=== PATIENT | female | born 1955 | race Asian ===

== ENCOUNTER 2016-11-21 17:43 | Emergency (ER) | payer OTHER ==
[2016-11-21 18:14] LABS: BILIRUBIN,URINE NEGATIVE (NEGATIVE)
[2016-11-21 18:17] LABS: UA CHARGE (STRIP ONLY) YES; UR CULTURE IF IND NOT INDICATED
--- NOTE | 2016-11-21 19:01 | ED Physician Documentation ---
PD HPI ABD PAIN - Stated complaint Stated Complaint: LLQ PX/CHILLS/FEVER - Chief complaint Chief Complaint: Abd Pain - History obtained from History obtained from: Patient - History of Present Illness Timing - onset: How many days ago (2-3) Timing - duration: Days (2-3) Timing - details: Gradual onset, Still present, Constant Quality: Aching, Pain Location: LLQ Radiation: No: Left flank Improved by: Position. No: Eating Worsened by: Position, Palpation. No: Eating, Breathing Associated symptoms: Fever, Nausea. No: Vomiting, Diarrhea, Melena Similar symptoms before: Has not had sx before Recently seen: Not recently seen Review of Systems Constitutional: reports: Fever, Chills Nose: denies: Rhinorrhea / runny nose, Congestion Throat: denies: Sore throat Cardiac: denies: Chest pain / pressure Respiratory: denies: Cough GI: reports: Abdominal Pain, Nausea. denies: Abdominal Swelling, Vomiting, Diarrhea : denies: Dysuria, Frequency Skin: denies: Rash, Lesions Musculoskeletal: denies: Back pain Neurologic: denies: Generalized weakness, Near syncope Endocrine: denies: Weight loss Immunocompromised: denies: Immunocompromised PD PAST MEDICAL HISTORY - Past Medical History Past Medical History: Yes Cardiovascular: Hypertension Endocrine/Autoimmune: Type 2 diabetes GI: GERD, Other (no prior diverticulitis) Musculoskeletal: Osteoarthritis - Past Surgical History Past Surgical History: Yes General: Cholecystectomy, Colonoscopy, EGD /ELECTRICAL DESIGN TECHNICIAN: Hysterectomy - Present Medications Home Medications: Ambulatory Orders Medication Instructions Recorded Confirmed Cephalexin [Keflex] 500 mg PO TID #21 capsule 11/21/16 Clopidogrel [Plavix] 75 mg PO DAILY 11/21/16 11/21/16 Fexofenadine HCl [Sheba Allergy] 60 mg PO 11/21/16 HYDROcod/ACETAM 5/325 [[place] 5/325] 1 tab PO Q6H PRN #15 tablet 11/21/16 Lisinopril [Zestril] 5 mg PO DAILY 11/21/16 11/21/16 Metronidazole [Flagyl] 500 mg PO BID #14 tablet 11/21/16 Multivitamin [Multiple Vitamins] 1 each PO 11/21/16 Pantoprazole [Protonix] 40 mg PO 11/21/16 Simvastatin [Zocor] 40 mg PO 11/21/16 11/21/16 metFORMIN [Glucophage] 500 mg PO BIDWM 11/21/16 11/21/16 - Allergies Allergies/Adverse Reactions: Allergies Allergy/AdvReac Type Severity Reaction Status Date / Time risedronate sodium Allergy Unknown Verified 11/21/16 17:58 [From Actonel] aspirin AdvReac Unknown Verified 11/21/16 17:58 loratadine [From Claritin] AdvReac Unknown Verified 11/21/16 17:58 - Social History Does the pt smoke?: No Smoking Status: Never smoker Does the pt drink ETOH?: No Does the pt have substance abuse?: No - Immunizations Immunizations are current?: Yes PD ED PE NORMAL - Vitals Vital signs reviewed: Yes - General General: Alert and oriented X 3, No acute distress, Well developed/nourished - HEENT HEENT: Moist mucous membranes, Pharynx benign - Neck Neck: Supple, no meningeal sign, No adenopathy - Cardiac Cardiac: RRR, No murmur - Respiratory Respiratory: Clear bilaterally - Abdomen Abdomen: Normal bowel sounds, Soft, Non distended, No organomegaly, Other ( tender LLQ with guarding, but no percussion nor rebound tenderness. ) - Female Female : Deferred - Rectal Rectal: Deferred - Derm Derm: Normal color, Warm and dry - Extremities Extremities: No deformity, No edema, No calf tenderness / cord - Neuro Neuro: Alert and oriented X 3, No motor deficit, Normal speech - Psych Psych: Normal mood, Normal affect Results - Vitals Vitals: Vital Signs - 24 hr 11/21/16 11/21/16 11/21/16 18:00 21:29 22:44 Temperature 38.1 C H 37.4 C Heart Rate 109 H 88 80 Respiratory 16 16 17 Rate Blood Pressure 146/77 H 127/75 O2 Saturation 100 96 98 Oxygen O2 Source Room air - Labs Labs: Laboratory Tests 11/21/16 11/21/16 11/21/16 18:05 18:35 18:35 WBC 11.1 H RBC 4.11 L Hgb 12.4 Hct 36.5 L MCV 88.9 MCH 30.3 MCHC 34.1 RDW 13.0 Plt Count 197 MPV 8.6 Neut # 8.7 H Lymph # 1.4 L [place] # 0.7 Eos # 0.1 Baso # 0.1 Absolute Nucleated RBC 0.00 Nucleated RBCs 0.0 Sodium 137 Potassium 3.6 Chloride 101 Carbon Dioxide 26 Anion Gap 10.0 BUN 13 Creatinine 0.7 Estimated GFR (MDRD) 85 L Glucose 136 H Calcium 9.7 Magnesium 1.7 Total Bilirubin 0.7 AST 33 ALT 35 Alkaline Phosphatase 59 Total Protein 7.7 Albumin 4.2 Globulin 3.5 Albumin/Globulin Ratio 1.2 Lipase 33 Urine Color YELLOW Urine Clarity CLEAR Urine pH 6.0 Ur Specific [place] <=1.005 Urine Protein NEGATIVE Urine Glucose (UA) NEGATIVE Urine Ketones NEGATIVE Urine Occult Blood TRACE-LYSE Urine Nitrite NEGATIVE Urine Bilirubin NEGATIVE Urine Urobilinogen 0.2 (NORMAL) Ur Leukocyte Esterase NEGATIVE Ur Microscopic Review NOT INDICATED Urine Culture Comments NOT INDICATED - Rads (name of study) abd CT Radiology: Prelim report reviewed (lower colon diverticulitis without abscess nor perforation) PD MEDICAL DECISION MAKING - ED course Complexity details: reviewed results, re-evaluated patient (she is feeling better with pain meds and antiemetics. She would prefer to go home. Uncomplicated diverticulitis and so home treatment is reasonable. ), considered differential (likely divertic vs. UTI/ stone/ pyelo. Will check labs, give IV fluids/pain meds/abx.), d/w patient Departure - Departure Disposition: 01 Home, Self Care Clinical Impression: Diverticulitis of gastrointestinal tract Abdominal pain Qualifiers: Abdominal location: left lower quadrant Qualified Code(s): R10.32 - Left lower quadrant pain Condition: Stable Record reviewed to determine appropriate education?: Yes Instructions: ED Diverticulitis Follow-Up: Yosvany Leon DO [Primary Care Provider] - Prescriptions: Metronidazole [Flagyl] 500 mg PO BID #14 tablet Cephalexin [Keflex] 500 mg PO TID #21 capsule HYDROcod/ACETAM 5/325 [[place] 5/325] 1 tab PO Q6H PRN #15 tablet PRN Reason: Pain Comments: Drink lots of fluids. Tylenol or hydrocodone if needed for pain. Cephalexin and metronidazole antibiotics as prescribed for a week. Follow-up with your primary care next week in about 5 or 6 days. Return sooner if worsening or if not improving over the next few days. Discharge Date/Time: 11/21/16 22:53
[2016-11-21] MEDS ORDERED: KETOROLAC 60 MG/2 ML VIAL IVP STA (19:11)
[2016-11-21] MEDS ORDERED: SODIUM CHLORIDE 0.9% 1,000 ML IV ONE (19:11)
[2016-11-21] MEDS ORDERED: HYDROmorphone 1 MG/ML SYRINGE IVP STA (19:11)
[2016-11-21] MEDS ORDERED: HYDROmorphone 1 MG/ML SYRINGE ONE (19:25)
[2016-11-21] MEDS ORDERED: KETOROLAC 15 MG/ML VIAL ONE (19:25)
[2016-11-21 19:26] LABS: ALBUMIN/GLOBULIN RATIO 1.2 (1.0-2.2); BILIRUBIN,TOTAL 0.7 mg/dL (0.2-1.0); CALCIUM 9.7 mg/dL (8.5-10.3); CREATININE 0.7 mg/dL (0.4-1.0); MAGNESIUM 1.7 mg/dL (1.7-2.8); POTASSIUM 3.6 mmol/L (3.5-5.0); TOTAL PROTEIN 7.7 g/dL (6.7-8.2)
[2016-11-21 19:27] LABS: BASOPHILS # (AUTO) 0.1 10^3/uL (0.0-0.1); BASOPHILS % (AUTO) 0.6 %; EOSINOPHILS # (AUTO) 0.1 10^3/uL (0.0-0.7); HCT - HEMATOCRIT 36.5 % (37.0-47.0); HGB - HEMOGLOBIN 12.4 g/dL (12.0-16.0); LYMPHOCYTES # (AUTO) 1.4 10^3/uL (1.5-3.5); LYMPHOCYTES % (AUTO) 12.7 %; MEAN CORPUSCULAR HEMOGLOBIN 30.3 pg (27.0-31.0); MEAN CORPUSCULAR HGB CONC 34.1 g/dL (32.0-36.0); MEAN CORPUSCULAR VOLUME 88.9 fL (81.0-99.0); MEAN PLATELET VOLUME 8.6 fL (7.9-10.8); MONOCYTES # (AUTO) 0.7 10^3/uL (0.0-1.0); MONOCYTES % (AUTO) 6.8 %; NEUTROPHILS # (AUTO) 8.7 10^3/uL (1.5-6.6); NEUTROPHILS % (AUTO) 78.9 %; RED BLOOD COUNT 4.11 10^6/uL (4.20-5.40); UNCORRECTED WHITE BLOOD COUNT 11.1 x10^3/uL; WHITE BLOOD COUNT 11.1 x10^3/uL (4.8-10.8)
[2016-11-21] MEDS ORDERED: cefTRIAXone 1 GM in SODIUM CHLORIDE 0.9% MINIBAG 100 ML IV STA (20:20)
[2016-11-21] MEDS ORDERED: cefTRIAXone 1 GM VIAL ONE (20:26)
[2016-11-21] MEDS ORDERED: IOPAMIDOL-300 100 ML VIAL IVP ONE (20:41)
[2016-11-21] MEDS ORDERED: metroNIDAZOLE 500 MG/100 ML 100 ML IV ONE (21:10)
--- NOTE | 2016-11-21 21:14 | CT Preliminary Report ---
Exam: CT Abdomen/Pelvis W/ IMPRESSION: Acute left lower quadrant diverticulitis. [facility] SITE ID: [id number]
--- NOTE | 2016-11-21 21:16 | CT Report ---
EXAM: CT ABDOMEN AND PELVIS EXAM DATE: 11/21/2016 08:53 PM. CLINICAL HISTORY: LLQ pain for 2-3 days. COMPARISONS: 02/11/2014 CT. TECHNIQUE: Routine helical CT imaging was performed through the abdomen and pelvis. IV contrast: 100 mL Isovue-300. Enteric contrast: No. Reconstructions: Coronal and sagittal. In accordance with CT protocol optimization, one or more of the following dose reduction techniques w ere utilized for this exam: automated exposure control, adjustment of mA and/or KV based on patient s ize, or use of iterative reconstructive technique. FINDINGS: Lung Bases: Unremarkable. Liver: Normal. No masses. Gallbladder/Bile Ducts: The gallbladder has been removed. No biliary dilatation. Spleen: Normal. Pancreas: Normal. Adrenal Glands: Normal. Kidneys: Normal. No masses or hydronephrosis. Peritoneal Cavity/Bowel: Acute diverticulitis involving the lower descending colon. No associated abs cess or pneumoperitoneum. The appendix is well visualized and normal. Pelvic Organs: Normal. The bladder and visualized pelvic organs are within normal limits. Vasculature: No aneurysms or other significant abnormality. Bones: No significant abnormality. Other: None. IMPRESSION: Acute left lower quadrant diverticulitis. [facility] Referring Provider Line: [phone] SITE ID: [id number]
[2016-11-21] MEDS ORDERED: metroNIDAZOLE 500 MG/100 ML 100 ML ONE (21:28)
[2016-11-21 21:37] VITALS: BP 127/75
[2016-11-21] MEDS ORDERED: HYDROcod/ACET 5/325 Prepack 6 PO ONE ×2 (22:38→22:43)
[2016-11-21] MEDS ORDERED: ONDANSETRON ODT 4 MG Prepack 2 TL PRN (22:38)
[2016-11-21] MEDS ORDERED: ONDANSETRON ODT 4 MG Prepack 2 TL ONE (22:43)
== END 2016-11-21 22:53 | disposition home or self-care (01) ==
LOC: ED 17:43
DX: K57.32 Diverticulitis of large intestine without perforation or abscess without bleeding (principal); I10 Essential (primary) hypertension; E11.9 Type 2 diabetes mellitus without complications; Z79.84 Long term (current) use of oral hypoglycemic drugs; K21.9 Gastro-esophageal reflux disease without esophagitis; M19.90 Unspecified osteoarthritis, unspecified site
CPT/HCPCS: 36415; 74177; 80053; 81003; 83690; 83735; 85025; 96365; 96375; 99284; Q9967; 81001; 87086

== ENCOUNTER 2018-11-17 11:03 | Emergency (ER) | payer OTHER ==
[2018-11-17 11:53] LABS: BASOPHILS # (AUTO) 0.1 10^3/uL (0.0-0.1); BASOPHILS % (AUTO) 1.3 %; EOSINOPHILS # (AUTO) 0.2 10^3/uL (0.0-0.7); HGB - HEMOGLOBIN 13.3 g/dL (12.0-16.0); LYMPHOCYTES # (AUTO) 1.8 10^3/uL (1.5-3.5); LYMPHOCYTES % (AUTO) 34.7 %; MEAN CORPUSCULAR HEMOGLOBIN 30.6 pg (27.0-31.0); MEAN CORPUSCULAR HGB CONC 33.8 g/dL (32.0-36.0); MEAN CORPUSCULAR VOLUME 90.6 fL (81.0-99.0); MEAN PLATELET VOLUME 9.9 fL (7.9-10.8); MONOCYTES # (AUTO) 0.3 10^3/uL (0.0-1.0); MONOCYTES % (AUTO) 6.1 %; NEUTROPHILS # (AUTO) 2.8 10^3/uL (1.5-6.6); NEUTROPHILS % (AUTO) 53.7 %; PLT - PLATELET COUNT 230 10^3/uL (130-450); RED BLOOD COUNT 4.35 10^6/uL (4.20-5.40); RED CELL DISTRIBUTION WIDTH 13.2 % (12.0-15.0); WHITE BLOOD COUNT 5.3 x10^3/uL (4.8-10.8)
[2018-11-17 12:09] LABS: ALBUMIN 4.5 g/dL (3.2-5.5); ALBUMIN/GLOBULIN RATIO 1.4 (1.0-2.2); BILIRUBIN,TOTAL 0.6 mg/dL (0.2-1.0); CALCIUM 9.9 mg/dL (8.5-10.3); CREATININE 0.7 mg/dL (0.4-1.0); TOTAL PROTEIN 7.8 g/dL (6.7-8.2)
--- NOTE | 2018-11-17 12:14 | XRAY Report ---
Reason: chest pain Procedure Date: 11/17/2018 Accession Number: [id number] / [id number] Procedure: XR - Chest 1 View X-Ray CPT Code: 16119 FULL RESULT: EXAM: CHEST RADIOGRAPHY EXAM DATE: 11/17/2018 11:53 AM. CLINICAL HISTORY: Chest pain. COMPARISON: CT ABDOMEN/PELVIS / 11/21/2016 8:42 PM Chest radiograph 02/09/2006 6:02 AM. TECHNIQUE: 1 view. FINDINGS: Lungs/Pleura: No focal opacities evident. No pleural effusion. No pneumothorax. Mediastinum: Within exam limitations, the cardiomediastinal contour is normal. There is mild atherosclerotic calcification of the aortic arch. Other: No acute osseous abnormality. There are surgical clips in the right upper quadrant of the abdomen. IMPRESSION: No acute cardiopulmonary abnormality. [facility]
--- NOTE | 2018-11-17 12:19 | ED Physician Documentation ---
PD HPI CHEST PAIN - Stated complaint Stated Complaint: NAUSEA/CHEST PRESSURE - Chief complaint Chief Complaint: Cardiac - History obtained from History obtained from: Patient - History of Present Illness Timing - onset: Today (This is a 62-year-old woman with history of diabetes, mild hypertension and hypercholesterolemia who has had vertigo for the last couple of days which is recurrent problem for her and did not bother her but woke up this morning with very mild constant nonradiating central chest pressure without shortness of breath. She had remotely negative stress test. But that was probably 10 or 15 years ago.) Review of Systems Constitutional: reports: Reviewed and negative Cardiac: reports: Chest pain / pressure. denies: Palpitations, Pedal edema, Calf pain Respiratory: denies: Dyspnea, Cough GI: reports: Nausea (mild, , But that is not uncommon for her vertigo.). 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 - Present Medications Home Medications: Ambulatory Orders Medication Instructions Recorded Confirmed Cephalexin [Keflex] 500 mg PO TID #21 capsule 11/21/16 Clopidogrel [Plavix] 75 mg PO DAILY 11/21/16 11/21/16 Fexofenadine HCl [Sheba Allergy] 60 mg PO 11/21/16 HYDROcod/ACETAM 5/325 [[place] 5/325] 1 tab PO Q6H PRN #15 tablet 11/21/16 Lisinopril [Zestril] 5 mg PO DAILY 11/21/16 11/21/16 Metronidazole [Flagyl] 500 mg PO BID #14 tablet 11/21/16 Multivitamin [Multiple Vitamins] 1 each PO 11/21/16 Pantoprazole [Protonix] 40 mg PO 11/21/16 Simvastatin [Zocor] 40 mg PO 11/21/16 11/21/16 metFORMIN [Glucophage] 500 mg PO BIDWM 11/21/16 11/21/16 - Allergies Allergies/Adverse Reactions: Allergies Allergy/AdvReac Type Severity Reaction Status Date / Time risedronate sodium Allergy Unknown Verified 11/17/18 11:18 [From Actonel] aspirin AdvReac Unknown Verified 11/17/18 11:18 loratadine [From Claritin] AdvReac Unknown Verified 11/17/18 11:18 - Social History Does the pt smoke?: No Smoking Status: Never smoker Does the pt drink ETOH?: No Does the pt have substance abuse?: No - Immunizations Immunizations are current?: Yes PD ED PE NORMAL - Vitals Vital signs reviewed: Yes - General General: Alert and oriented X 3, No acute distress - HEENT HEENT: PERRL, EOMI - Neck Neck: Supple, no meningeal sign, No bony TTP - Cardiac Cardiac: RRR, No murmur - Respiratory Respiratory: No respiratory distress, Clear bilaterally - Abdomen Abdomen: Non tender - Extremities Extremities: No edema, No calf tenderness / cord - Neuro Neuro: Alert and oriented X 3, Normal speech Results - Vitals Vitals: Vital Signs - 24 hr 11/17/18 11/17/18 11/17/18 11:06 11:35 12:18 Temperature 36.7 C Heart Rate 69 61 71 Respiratory 16 17 13 Rate Blood Pressure 139/77 H 138/82 H 111/78 O2 Saturation 99 99 99 11/17/18 11/17/18 11/17/18 12:30 13:00 13:30 Temperature Heart Rate 70 68 72 Respiratory 14 16 20 Rate Blood Pressure 110/80 113/67 101/65 O2 Saturation 100 97 98 11/17/18 14:00 Temperature Heart Rate 74 Respiratory 12 Rate Blood Pressure 117/70 O2 Saturation 98 Oxygen O2 Source Room air - EKG (time done) 1112 Rate: Rate (enter#) (65) Rhythm: NSR [place]: Normal Intervals: Normal RI QRS: Normal Ischemia: Normal ST segments Computer interpretation: Agree with computer - Labs Labs: Laboratory Tests 11/17/18 11/17/18 11/17/18 11:44 11:44 11:44 WBC 5.3 RBC 4.35 Hgb 13.3 Hct 39.4 MCV 90.6 MCH 30.6 MCHC 33.8 RDW 13.2 Plt Count 230 MPV 9.9 Neut # (Auto) 2.8 Lymph # (Auto) 1.8 [place] # (Auto) 0.3 Eos # (Auto) 0.2 Baso # (Auto) 0.1 Absolute Nucleated RBC 0.00 Nucleated RBC % 0.0 Sodium 139 Potassium 4.0 Chloride 101 Carbon Dioxide 26 Anion Gap 12.0 BUN 13 Creatinine 0.7 Estimated GFR (MDRD) 85 L Glucose 101 H Calcium 9.9 Total Bilirubin 0.6 AST 27 ALT 20 Alkaline Phosphatase 46 Troponin I High Sens 2.4 Total Protein 7.8 Albumin 4.5 Globulin 3.3 Albumin/Globulin Ratio 1.4 Lipase 39 11/17/18 14:06 WBC RBC Hgb Hct MCV MCH MCHC RDW Plt Count MPV Neut # (Auto) Lymph # (Auto) [place] # (Auto) Eos # (Auto) Baso # (Auto) Absolute Nucleated RBC Nucleated RBC % Sodium Potassium Chloride Carbon Dioxide Anion Gap BUN Creatinine Estimated GFR (MDRD) Glucose Calcium Total Bilirubin AST ALT Alkaline Phosphatase Troponin I High Sens < 2.3 L Total Protein Albumin Globulin Albumin/Globulin Ratio Lipase PD MEDICAL DECISION MAKING - ED course ED course: 62-year-old woman with atypical chest pain of about 6 hours with 2- troponins and nonischemic EKG in the department. Departure - Departure Disposition: 01 Home, Self Care Clinical Impression: Chest pain Qualifiers: Chest pain type: unspecified Qualified Code(s): R07.9 - Chest pain, unspecified Condition: Good Record reviewed to determine appropriate education?: Yes Instructions: ED Chest Pain Atypical Unkn Cause Comments: The lab work and EKG today suggest against any cardiac abnormality. That said since it has been a long time since her last stress test you should follow-up with your doctor tomorrow to schedule a new one. Return for new worsening symptoms. Continue current medications.
[2018-11-17 15:21] VITALS: BP 107/65
== END 2018-11-17 15:24 | disposition home or self-care (01) ==
LOC: ED 11:03
DX: R07.9 Chest pain, unspecified (principal); I10 Essential (primary) hypertension; E11.9 Type 2 diabetes mellitus without complications; Z79.84 Long term (current) use of oral hypoglycemic drugs
CPT/HCPCS: 36415; 71045; 80053; 83690; 84484; 85025; 93005; 99284

== ENCOUNTER 2019-01-20 14:24 | Outpatient (CLI) | payer OTHER ==
--- NOTE | 2019-01-20 18:29 | CARDIAC PROCEDURE NOTE ---
DATE OF SERVICE: 01/20/2019 Physician: Viviana Hunter MD, [facility] INDICATION: Chest pain. CARDIAC RISK FACTORS 1. Postmenopausal status. 2. Diabetes. 3. Hypertension. 4. Hyperlipidemia. DESCRIPTION OF PROCEDURE: After signing informed consent, he patient underwent a Rao-protocol treadmill stress test. No imaging was ordered with this test. RESTING HEART RATE: 83. PEAK HEART RATE: 154 (98% predicted maximum heart rate for age). RESTING BLOOD PRESSURE: 106/70. PEAK BLOOD PRESSURE: 161/61 and it went up further in early recovery to 178/65 before declining. Patient exercised for 6 minutes and 52 seconds on a Rao-protocol treadmill stress test. She achieved a peak heart rate of 154 (98% predicted maximum heart rate for age) and 8.4 METS. Patient had mild to moderate shortness of breath, no chest pain and described her perceived exertion at 13/20 on a Celi scale. Her oxygen saturation was 98% at rest and 93% at peak exercise, on room air. RESTING EKG: Normal sinus rhythm, left atrial enlargement, delta waves are present in leads I, II, V5, and V6, but no short MN interval is present. EKG AT PEAK: Diffuse upsloping ST segment depressions in leads II, III, aVF, and V3 through V6. SUMMARY 1. Abnormal resting EKG. 2. Nonspecific EKG changes occur with exercise at a good level of stress. 3. No imaging was ordered with this test. 4. This patient's cardiac risk based on EKG changes during exercise: Mild to moderate. 5. Consider repeat stress testing using imaging (stress echo or a treadmill exercise with nuclear imaging). cc: Ayesha Martel TD: 01/20/2019 17:03 MTDD
== END 2019-01-20 14:25 | disposition home or self-care (01) ==
LOC: DI 14:24
PROVIDERS: ATTEND Family Medicine
DX: R07.9 Chest pain, unspecified (principal); R94.31 Abnormal electrocardiogram [ECG] [EKG]; I10 Essential (primary) hypertension; E11.9 Type 2 diabetes mellitus without complications; E78.5 Hyperlipidemia, unspecified
CPT/HCPCS: 93017

== ENCOUNTER 2019-04-13 15:53 | Outpatient (CLI) | payer OTHER ==
--- NOTE | 2019-04-14 15:45 | Mammography Report ---
Reason: SCREENING MAMMO Procedure Date: 04/13/2019 Accession Number: [id number] / [id number] Procedure: [facility] - Screening Mammo w/Lamberto CPT Code: Final Report FULL RESULT: EXAM: Screening Mammo w/Lamberto DATE: 04/13/2019 4:27 PM CLINICAL HISTORY: The patient is an asymptomatic 63-year-old female. Family history (sister) with breast cancer. Prior benign left breast excisional biopsy. TECHNIQUE: (B) - Bilateral CC and MLO views were obtained. COMPARISON: 02/16/2015, 12/09/2013 11/22/2012 PARENCHYMAL PATTERN: (D) - The breasts demonstrate heterogeneously dense fibroglandular parenchyma bilaterally. FINDINGS: The pattern of asymmetry is stable given positional variation. Postbiopsy changes again noted in the left breast. There are no suspicious masses, calcifications, or areas of distortion. IMPRESSION: Benign findings. BI-RADS category 2. RECOMMENDATION: (ANNUAL) - Recommend routine annual screening mammography. BI-RADS CATEGORY: (2) - Benign Findings. STANDARD QUALIFYING STATEMENTS: A negative or benign imaging report should not preclude biopsy if clinically suspicious findings are present. Dense breasts may obscure an underlying neoplasm. This examination was reviewed with the aid of 3D breast imaging (tomosynthesis).
== END 2019-04-13 15:54 | disposition home or self-care (01) ==
LOC: DI 15:53
DX: Z12.31 Encounter for screening mammogram for malignant neoplasm of breast (principal); Z80.3 Family history of malignant neoplasm of breast
CPT/HCPCS: 77063; 77067

== ENCOUNTER 2020-07-26 11:16 | Outpatient (CLI) | payer OTHER ==
--- NOTE | 2020-07-27 09:38 | Mammography Report ---
BILATERAL DIGITAL SCREENING MAMMOGRAM 3D/2D: 07/26/2020 CLINICAL: Routine screening. Comparison is made to exams dated: 04/13/2019 mammogram - [facility], 02/16/2018 [facility] mogram, 02/12/2017 mammogram - [facility], 02/16/2015 mammogram, 12/28/2013 mammogram, and 12/09 mammogram - [facility]. The tissue of both breasts is predominantly fatty. There are benign calcifications in both breasts. No significant masses, calcifications, or other findings are seen in either breast. There has been no significant interval change. IMPRESSION: BENIGN There is no mammographic evidence of malignancy. A 1 year screening mammogram is recommended. This exam was interpreted at Station ID: [id number]. NOTE: For mammograms, a report in lay terms will be sent to the patient. Approximately 15% of breast malignancies will not be visualized mammographically. In the management of a palpable breast mass, a negative mammogram must not discourage biopsy of a clinically suspicious lesion. Electronically Signed By: Ariel Fan acr/penrad:07/26/2020 12:27:39 ACR BI-RADS Category 2: Benign Finding(s) 3342F PARENCHYMAL PATTERN: (F) - The breast(s) demonstrate(s) diffuse fatty replacement. BI-RADS CATEGORY: (2) - 2 RECOMMENDATION: (ANNUAL) - Recommend routine annual screening mammography. [id number] 1 year screening LATERALITY: (B)
== END 2020-07-26 11:17 | disposition home or self-care (01) ==
LOC: DI.N 11:16
DX: Z12.31 Encounter for screening mammogram for malignant neoplasm of breast (principal)

== ENCOUNTER 2020-09-10 08:00 | Outpatient (CLI) | payer OTHER ==
--- NOTE | 2020-09-10 13:11 | XRAY Report ---
PROCEDURE: Foot 3 View RT INDICATIONS: FOOT PAIN, RIGHT TECHNIQUE: 3 views of the foot were acquired. COMPARISON: None FINDINGS: Bones: No fractures or dislocations. No suspicious bony lesions. Soft tissues: No tibiotalar joint effusion. Achilles tendon appears normal. IMPRESSION: No acute fracture. No osseous lesion. If symptoms and/or clinical suspicion for pathology continue, f urther assessment with repeat plain films, or advanced imaging (e.g., CT, MRI, or bone scan) is recom mended for further assessment. Reviewed by: Bereket Madden MD on 09/10/2020 1:10 PM PDT Approved by: Bereket Madden MD on 09/10/2020 1:10 PM PDT Station ID: [id number]
[2020-09-10 18:15] LABS: CALCIUM 9.9 mg/dL (8.5-10.3); CREATININE 0.6 mg/dL (0.4-1.0); POTASSIUM 4.1 mmol/L (3.5-5.0); URIC ACID 6.4 mg/dL (2.6-7.2)
== END 2020-09-10 23:59 | disposition home or self-care (01) ==
LOC: DI.N 08:00
PROVIDERS: ATTEND Family Medicine
DX: M79.671 Pain in right foot (principal)
CPT/HCPCS: 36415; 80048; 84550

== ENCOUNTER 2021-06-18 15:22 | Outpatient (CLI) | payer MEDICARE, OTHER ==
--- NOTE | 2021-06-18 16:23 | DEXA Report ---
PROCEDURE: Dexa Spine and/or Hip INDICATIONS: POST MENOPAUSAL Z78.0 TECHNIQUE: Dual energy x-ray absorptiometry (DXA) was performed on a [employer] System. Regions measur ed are the AP Spine, femoral neck, and if needed forearm. COMPARISON: None. FINDINGS: Lumbar Spine: Bone Mineral Density 0.925 g/cm/cm,T score -2.1 Left Hip: Bone Mineral Density 0.920 g/cm/cm,T score -0.7 Left Femoral Neck: Bone Mineral Density 0.862 g/cm/cm, T score -1.3 (T score greater or equal to -1.0: NORMAL) (T score from -1.1 to -2.4: OSTEOPENIA) (T score less than or equal to -2.5 to: OSTEOPOROSIS) Impression: Osteopenia of the lumbar spine and the left femoral neck. Patients with diagnosis of osteoporosis or osteopenia should have regular bone mineral density assess ment. For those eligible for Medicare, routine testing is allowed once every 2 years. Testing frequ ency can be increased for patients who have rapidly progressing disease or for those who are receivin g medical therapy to restore bone mass. Reviewed by: Kaley Montoya MD on 06/18/2021 4:22 PM PDT Approved by: Kaley Montoya MD on 06/18/2021 4:22 PM PDT Station ID: [id number]
== END 2021-06-18 15:23 | disposition home or self-care (01) ==
LOC: DI 15:22
PROVIDERS: ATTEND Internal Medicine
DX: M85.89 Other specified disorders of bone density and structure, multiple sites (principal); Z78.0 Asymptomatic menopausal state

== ENCOUNTER 2021-07-25 08:00 | Outpatient (CLI) | payer MEDICARE, OTHER ==
[2021-07-25 12:24] LABS: HCT - HEMATOCRIT 38.5 % (37.0-47.0); MEAN CORPUSCULAR HEMOGLOBIN 30.4 pg (27.0-31.0); MEAN CORPUSCULAR HGB CONC 33.8 g/dL (32.0-36.0); MEAN CORPUSCULAR VOLUME 90.2 fL (81.0-99.0); MEAN PLATELET VOLUME 10.1 fL (7.9-10.8); RED BLOOD COUNT 4.27 10^6/uL (4.20-5.40); RED CELL DISTRIBUTION WIDTH 12.7 % (12.0-15.0)
== END 2021-07-25 23:59 | disposition home or self-care (01) ==
LOC: LAB.N 08:00
PROVIDERS: ATTEND Physician Assistant Medical
DX: M10.9 Gout, unspecified (principal)
CPT/HCPCS: 36415; 84550; 85027

== ENCOUNTER 2021-08-05 14:41 | Outpatient (CLI) | payer MEDICARE, OTHER ==
--- NOTE | 2021-08-09 16:24 | Mammography Report ---
BILATERAL DIGITAL SCREENING MAMMOGRAM 3D/2D: 08/05/2021 CLINICAL: Family history of breast cancer. Routine screening. Comparison is made to exams dated: 07/26/2020 mammogram, 04/13/2019 mammogram - [facility], 02/16/2018 mammogram, 02/12/2017 mammogram - [facility], 02/16/2015 mammogram, and 12/06 mammogram - [facility]. The tissue of both breasts is predominantly fatty. There are benign calcifications in both breasts. No significant masses, calcifications, or other findings are seen in either breast. There has been no significant interval change. IMPRESSION: BENIGN There is no mammographic evidence of malignancy. A 1 year screening mammogram is recommended. This exam was interpreted at Station ID: [id number]. NOTE: For mammograms, a report in lay terms will be sent to the patient. Approximately 15% of breast malignancies will not be visualized mammographically. In the management of a palpable breast mass, a negative mammogram must not discourage biopsy of a clinically suspicious lesion. Electronically Signed By: Piotr Gutierrez M.D., jr/augie:08/05/2021 15:14:06 ACR BI-RADS Category 2: Benign Finding(s) 3342F PARENCHYMAL PATTERN: (F) - The breast(s) demonstrate(s) diffuse fatty replacement. BI-RADS CATEGORY: (2) - 2 RECOMMENDATION: (ANNUAL) - Recommend routine annual screening mammography. [id number] 1 year screening LATERALITY: (B)
== END 2021-08-05 14:42 | disposition home or self-care (01) ==
LOC: DI.N 14:41
PROVIDERS: ATTEND Internal Medicine
DX: Z12.31 Encounter for screening mammogram for malignant neoplasm of breast (principal); Z80.3 Family history of malignant neoplasm of breast

== ENCOUNTER 2022-09-08 13:31 | Outpatient (CLI) | payer MEDICARE, OTHER ==
--- NOTE | 2022-09-09 12:54 | Mammography Report ---
BILATERAL DIGITAL SCREENING MAMMOGRAM 3D/2D: 09/08/2022 CLINICAL: Family history of breast cancer. Routine screening. Comparison is made to exams dated: 08/05/2021 mammogram, 07/26/2020 mammogram, 04/13/2019 mammogram - [facility], 02/16/2018 mammogram, 02/12/2017 mammogram - [facility], and 02/16 mammogram - [facility]. There are scattered areas of fibroglandular density in both breasts (category b / 25%-50% glandular t issue). There are benign calcifications in both breasts. No significant masses, calcifications, or other findings are seen in either breast. There has been no significant interval change. IMPRESSION: BENIGN There is no mammographic evidence of malignancy. A 1 year screening mammogram is recommended. Based on the Tyrer Cuzick model (a risk assessment model) the patients lifetime risk is 9.8% and her 10 year risk is 5.0%. According to the ACR, ACS, and NCCN guidelines, an annual breast MRI exam antionette g with mammogram is recommended if the patients lifetime risk is 20% or greater. This exam was interpreted at Station ID: [id number]. NOTE: For mammograms, a report in lay terms will be sent to the patient. Approximately 15% of breast malignancies will not be visualized mammographically. In the management of a palpable breast mass, a negative mammogram must not discourage biopsy of a clinically suspicious lesion. Electronically Signed By: Darrick jain/augie:09/08/2022 18:16:12 letter sent: No_Letter ACR BI-RADS Category 2: Benign Finding(s) 3342F PARENCHYMAL PATTERN: (A) - The breast(s) demonstrate(s) scattered fibroglandular densities. BI-RADS CATEGORY: (2) - 2 Mammogram [id number] 1 year screening LATERALITY: (B)
== END 2022-09-08 13:32 | disposition home or self-care (01) ==
LOC: DI.N 13:31
DX: Z12.31 Encounter for screening mammogram for malignant neoplasm of breast (principal); Z80.3 Family history of malignant neoplasm of breast

== ENCOUNTER 2023-06-22 08:13 | Outpatient (CLI) | payer MEDICARE, OTHER ==
--- NOTE | 2023-06-22 16:53 | Ultrasound Report ---
PROCEDURE: Abdomen Complete INDICATIONS: ABD PAIN TECHNIQUE: Real-time scanning was performed of the abdominal and retroperitoneal organs, with image documentatio n. COMPARISON: None. FINDINGS: Liver: Liver is normal in size. Diffusely increased liver parenchymal echotexture is seen. No discre te hepatic lesion. Gallbladder: Absent. Biliary ducts: Intrahepatic bile ducts are non-dilated. Extrahepatic bile duct caliber measures 5.9 mm. Normal is 6-7 mm or less in diameter, or 10 mm or less post-cholecystectomy. Pancreas: Visualized portions of the pancreas are sonographically normal. Spleen: Spleen is normal in size and homogeneous in echotexture. Kidneys: Kidneys are normal in size and echotexture. Right kidney measures 10.0 cm long; left kidne y measures 10.3 cm long. No hydronephrosis or nephrolithiasis. No solid masses. No complex renal cy stic lesions which require follow-up. Aorta: Visualized aorta is normal in caliber at less than 3 cm. Calcified plaques are noted through out abdominal aorta. Iliacs: Proximal common iliac arteries are normal in caliber at less than 2.5 cm. IVC: Intrahepatic inferior vena cava is patent. Miscellaneous: No free abdominal fluid. IMPRESSION: 1. Hepatic steatosis, no discrete hepatic lesion. 2. Prior cholecystectomy. No biliary ductal dilatation. 3. Mild to moderate atherosclerotic disease throughout abdominal aorta. 4. Rest of the exam is unremarkable. Reviewed by: Jesus Cote MD on 06/22/2023 4:52 PM PDT Approved by: Jesus Cote MD on 06/22/2023 4:52 PM PDT Station ID: [id number]
== END 2023-06-22 08:14 | disposition home or self-care (01) ==
LOC: DI 08:13
PROVIDERS: ATTEND Family Medicine
DX: K76.0 Fatty (change of) liver, not elsewhere classified (principal); Z90.49 Acquired absence of other specified parts of digestive tract; I70.0 Atherosclerosis of aorta

== ENCOUNTER 2023-06-29 09:06 | Outpatient (CLI) | payer MEDICARE, OTHER ==
[2023-06-29 11:58] LABS: HCT - HEMATOCRIT 41.3 % (37.0-47.0); HGB - HEMOGLOBIN 13.6 g/dL (12.0-16.0); MEAN CORPUSCULAR HEMOGLOBIN 30.4 pg (27.0-31.0); MEAN CORPUSCULAR HGB CONC 32.9 g/dL (32.0-36.0); MEAN CORPUSCULAR VOLUME 92.4 fL (81.0-99.0); MEAN PLATELET VOLUME 10.4 fL (7.9-10.8); RED BLOOD COUNT 4.47 10^6/uL (4.20-5.40); RED CELL DISTRIBUTION WIDTH 12.9 % (12.0-15.0); WHITE BLOOD COUNT 3.5 x10^3/uL (4.8-10.8)
[2023-06-29 12:34] LABS: ALBUMIN 4.5 g/dL (3.2-5.5); ALBUMIN/GLOBULIN RATIO 1.6 (1.0-2.2); ALKALINE PHOSPHATASE 50 IU/L (42-121); ALT ALANINE AMINOTRANSFERASE 38 IU/L (10-60); AST ASPARTATE AMINOTRANSFERASE 29 IU/L (10-42); BILIRUBIN,TOTAL 0.5 mg/dL (0.2-1.0); BUN - BLOOD UREA NITROGEN 17 mg/dL (6-20); CALCIUM 10.1 mg/dL (8.5-10.3); CARBON DIOXIDE - CO2 28 mmol/L (21-32); CHLORIDE 106 mmol/L (101-111); CHOL/HDL RATIO 3.3 (<4.4); CHOLESTEROL 199 mg/dL; CREATININE 0.6 mg/dL (0.6-1.3); GFR - MDRD 100 (>89); GLUCOSE 112 mg/dL (74-104); HDL CHOLESTEROL 61 mg/dL; LDL CHOLESTEROL,CALCULATED 110 mg/dL; LDL/HDL RATIO 1.8 (<4.4); LIPASE 26 U/L (11-82); POTASSIUM 4.3 mmol/L (3.5-4.5); SODIUM 139 mmol/L (135-145); TOTAL PROTEIN 7.4 g/dL (6.4-8.9); TRIGLYCERIDES 141 mg/dL (48-352); VLDL CHOLESTEROL 28 mg/dL
[2023-06-29 12:37] LABS: ESTIMATED AVERAGE GLUCOSE 128 mg/dL (70-100); HEMOGLOBIN A1c% 6.1 % (4.27-6.07)
[2023-06-29 12:47] LABS: THYROID STIMULATING HORMONE 1.66 uIU/mL (0.34-5.60)
[2023-06-29 12:56] LABS: CREATININE,URINE 58.8 mg/dL
[2023-06-29 12:57] LABS: MICROALBUMIN,URINE < 0.7 mg/dL
== END 2023-06-29 09:07 | disposition home or self-care (01) ==
LOC: LAB.N 09:06
PROVIDERS: ATTEND Family Medicine
DX: E11.9 Type 2 diabetes mellitus without complications (principal); E78.5 Hyperlipidemia, unspecified; R10.12 Left upper quadrant pain
CPT/HCPCS: 36415; 80053; 80061; 82043; 82570; 83036; 83690; 83721; 84443; 85027

== ENCOUNTER 2023-08-03 14:12 | Outpatient (CLI) | payer MEDICARE, OTHER ==
--- NOTE | 2023-08-03 15:26 | DEXA Report ---
PROCEDURE: Dexa Spine and/or Hip INDICATIONS: POST MENOPAUSAL TECHNIQUE: Dual energy x-ray absorptiometry (DXA) was performed on a [employer] System. Regions measur ed are the AP Spine, femoral neck, and if needed forearm. COMPARISON: DEXA 06/18/2021 FINDINGS: Lumbar Spine: Bone Mineral Density: 0.955 g/cm/cm,T score: -1.9. Since the most recent prior study, there has been a statistically significant increase in bone mineral density by 3.2 percent. Left Femoral Neck: Bone Mineral Density: 0.825 g/cm/cm, T score: -1.5. Left Hip: Bone Mineral Density: 0.902 g/cm/cm,T score: -0.8. There has been no statistically significant change in bone mineral density since the prior study. (T score greater or equal to -1.0: NORMAL) (T score from -1.1 to -2.4: OSTEOPENIA) (T score less than or equal to -2.5 to: OSTEOPOROSIS) Impression: By WHO criteria, this patient has low bone density (osteopenia). Interval statistical increase in bone mineral density of the lumbar spine. No statistical interval ch che in bone mineral density of the hip. Patients with diagnosis of osteoporosis or osteopenia should have regular bone mineral density assess ment. For those eligible for Medicare, routine testing is allowed once every 2 years. Testing frequ ency can be increased for patients who have rapidly progressing disease or for those who are receivin g medical therapy to restore bone mass. Reviewed by: Alvarez Nunez MD on 08/03/2023 3:24 PM PDT Approved by: Alvarez Nunez MD on 08/03/2023 3:24 PM PDT Station ID: [id number]
== END 2023-08-03 14:13 | disposition home or self-care (01) ==
LOC: DI 14:12
PROVIDERS: ATTEND Family Medicine
DX: M85.89 Other specified disorders of bone density and structure, multiple sites (principal); Z78.0 Asymptomatic menopausal state

== ENCOUNTER 2023-08-07 12:00 | Outpatient (CLI) | payer MEDICARE, OTHER ==
[2023-08-07 17:52] LABS: BASOPHILS # (AUTO) 0.1 10^3/uL (0.0-0.1); BASOPHILS % (AUTO) 1.4 %; EOSINOPHILS # (AUTO) 0.2 10^3/uL (0.0-0.7); EOSINOPHILS % (AUTO) 4.3 %; HCT - HEMATOCRIT 39.6 % (37.0-47.0); HGB - HEMOGLOBIN 12.8 g/dL (12.0-16.0); LYMPHOCYTES # (AUTO) 1.8 10^3/uL (1.5-3.5); LYMPHOCYTES % (AUTO) 40.3 %; MEAN CORPUSCULAR HEMOGLOBIN 29.7 pg (27.0-31.0); MEAN CORPUSCULAR HGB CONC 32.3 g/dL (32.0-36.0); MEAN CORPUSCULAR VOLUME 91.9 fL (81.0-99.0); MEAN PLATELET VOLUME 10.9 fL (7.9-10.8); MONOCYTES # (AUTO) 0.3 10^3/uL (0.0-1.0); MONOCYTES % (AUTO) 6.8 %; NEUTROPHILS # (AUTO) 2.1 10^3/uL (1.5-6.6); PLT - PLATELET COUNT 228 10^3/uL (130-450); RED BLOOD COUNT 4.31 10^6/uL (4.20-5.40); WHITE BLOOD COUNT 4.4 x10^3/uL (4.8-10.8)
== END 2023-08-07 12:01 | disposition home or self-care (01) ==
LOC: LAB.N 12:00
PROVIDERS: ATTEND Family Medicine
DX: D72.819 Decreased white blood cell count, unspecified (principal)
CPT/HCPCS: 36415; 85025

== ENCOUNTER 2023-08-26 07:16 | Day surgery (SDC) | payer MEDICARE, OTHER ==
[~2023-08-26 07:16] MED LIST: LIDOCAINE-PF 2% 10 ML AMP SUBQ ONE; PROPOFOL 500 MG/50 ML 500 MG/50 ML VIAL ONE
[2023-08-26] MEDS: LACTATED RINGERS 1,000 ML IV ONE (07:26)
--- NOTE | 2023-08-26 08:13 | ANESTHESIA ---
Pre-Anesthesia VS, & Labs - Diagnosis history of colon polyps - Procedure colonoscopy Vital Signs: Temp Pulse Resp BP Pulse Ox O2 Flow Rate 36.4 C L 70 14 124/91 H 96 08/26/23 07:26 08/26/23 07:26 08/26/23 07:26 08/26/23 07:26 08/26/23 07:26 Height: 4 ft 10 in Weight (kg): 56 kg Body Mass Index: 25.7 BMI Classification: Overweight - NPO >8 hours - Is Patient ?: No - Lab Results Current Lab Results: Laboratory Tests 08/26/23 07:37: POC Whole Bld Glucose 121 H Lab results reviewed: Yes Home Medications and Allergies Multivitamin [Multiple Vitamins] 1 each PO DAILY 11/21/16 Simvastatin [Zocor] 40 mg PO DAILY 11/21/16 metFORMIN [Glucophage] 500 mg PO BIDWM 11/21/16 Allergies/Adverse Reactions: Allergies Allergy/AdvReac Type Severity Reaction Status Date / Time risedronate sodium Allergy Unknown Verified 08/26/23 07:41 [From Actonel] aspirin AdvReac Mild Unknown Verified 08/26/23 07:41 loratadine [From Claritin] AdvReac Unknown Verified 08/26/23 07:41 Anes History & Medical History - Anesthetic History Anesthesia Complications: reports: No previous complications - Medical History Cardiovascular: reports: High cholesterol Pulmonary: reports: None Gastrointestinal: reports: GERD, Other Musculoskeletal: reports: Osteoarthritis Endocrine/Autoimmune: reports: Other (borderline diabetes) Skin: reports: None Smoking Status: Never smoker Psychosocial: reports: No issues indicated History of Cancer?: No - Surgical History General: reports: Cholecystectomy, Colonoscopy, EGD Gynecologic: reports: Hysterectomy Exam General: Alert, Oriented x3, Cooperative, No acute distress Dental: WNL (several missing) Mouth Openin Fingerbreadth Neck Mobility: Normal Mallampati classification: II Thyromental Distance: 4-6 cm Mental/Cognitive Status: Alert/Oriented X3, Normal for patient Plan Anesthesia Type: General, Total IV Consent for Procedure(s) Verified and Reviewed: Yes Code Status: Attempt Resuscitation ASA classification: 2-Mild systemic disease Is this case an emergency?: No
[2023-08-26] MEDS: SIMETHICONE *(INFANT SUSP)* 40 MG/0.6 ML BOTTLE PO ONE (09:00)
[2023-08-26] MEDS: LACTATED RINGERS 400 ML IV ONE (09:13)
--- NOTE | 2023-08-26 09:21 | ANESTHESIA POST OP EVALUATION ---
Anesthesia Post Eval - Post Anesthesia Eval Vitals: Last Vital Signs Temp 36.4 C L 08/26/23 09:11 Pulse 71 08/26/23 09:11 Resp 16 08/26/23 09:11 BP 137/75 H 08/26/23 09:11 Pulse Ox 96 08/26/23 09:11 O2 Flow Rate CV Function Including HR & BP: Stable Pain Control: Satisfactory Nausea & Vomiting: Negative Mental Status: Baseline Respiratory Status: Airway Patent Hydration Status: Satisfactory Anesthesia Complications: None
[2023-08-26 09:42] VITALS: BP 123/75; O2SAT 98
== END 2023-08-26 07:17 | disposition home or self-care (01) ==
LOC: SDS 07:16
PROVIDERS: ATTEND Surgery
DX: Z86.010 Personal history of colon polyps (principal); K57.30 Diverticulosis of large intestine without perforation or abscess without bleeding; E11.9 Type 2 diabetes mellitus without complications; Z79.84 Long term (current) use of oral hypoglycemic drugs
CPT/HCPCS: 45378; A9270; J7120

== ENCOUNTER 2023-09-24 11:17 | Outpatient (CLI) | payer MEDICARE, OTHER ==
--- NOTE | 2023-09-25 10:38 | Mammography Report ---
BILATERAL DIGITAL SCREENING MAMMOGRAM 3D/2D: 09/24/2023 CLINICAL: Routine screening. Family history of breast cancer. Comparison is made to exams dated: 09/08/2022 mammogram, 08/05/2021 mammogram, 07/26/2020 mammogram, 2019 mammogram - [facility], 02/16/2018 mammogram, and 02/12/2017 mammogram - [facility]. Both breasts are heterogeneously dense, which may obscure small masses (category c / 51-75% glandular tissue). There are benign calcifications in both breasts. No significant masses, calcifications, or other findings are seen in either breast. There has been no significant interval change. IMPRESSION: BENIGN There is no mammographic evidence of malignancy. A 1 year screening mammogram is recommended. Based on the Tyrer Cuzick model (a risk assessment model) the patient's lifetime risk is 13.9% and he r 10 year risk is 7.4%. According to the ACR, ACS, and NCCN guidelines, an annual breast MRI exam omar ng with mammogram is recommended if the patient's lifetime risk is 20% or greater. This exam was interpreted at Station ID: [id number]. NOTE: For mammograms, a report in lay terms will be sent to the patient. Approximately 15% of breast malignancies will not be visualized mammographically. In the management of a palpable breast mass, a negative mammogram must not discourage biopsy of a clinically suspicious lesion. Electronically Signed By: Hernando [email or web address]:09/24/2023 11:46:46 letter sent: No_Letter ACR BI-RADS Category 2: Benign Finding(s) 3342F PARENCHYMAL PATTERN: (D) - The breast(s) demonstrate(s) heterogeneously dense fibroglandular parenchy ma. BI-RADS CATEGORY: (2) - 2 RECOMMENDATION: (ANNUAL) - Recommend routine annual screening mammography. [id number] 1 year screening LATERALITY: (B)
== END 2023-09-24 11:18 | disposition home or self-care (01) ==
LOC: DI.N 11:17
DX: Z12.31 Encounter for screening mammogram for malignant neoplasm of breast (principal); R92.333 Mammographic heterogeneous density, bilateral breasts; Z80.3 Family history of malignant neoplasm of breast